=== PATIENT | female | born 2000 | race Caucasian/White ===

== ENCOUNTER → 2019-11-04 09:25 | Outpatient (POV) | payer SELFPAY | PROVIDERS: Visit Provider Otolaryngology | DX: Z00.00 Encounter for general adult medical examination without abnormal findings (principal) ==

== ENCOUNTER → 2023-08-08 09:33 | Outpatient (CLI) | payer BC, SELFPAY | LOC: RT 09:36 | PROVIDERS: PCP Family Medicine; Visit Provider Physician Assistant | DX: R00.2 Palpitations (principal) | CPT/HCPCS: 93225 ==